=== PATIENT | male | born 1950 | race Caucasian/White ===

== ENCOUNTER 2018-05-12 10:03 | Day surgery (SDC) | payer OTHER, MEDICARE, BC ==
[~2018-05-12 10:03] MED LIST: Lactated Ringers 1,000 ML IV SCH
[2018-05-12] MEDS ORDERED: fentaNYL 100 MCG/2 ML SDV ONE (10:04)
[2018-05-12] MEDS ORDERED: Lidocaine 2% 5 ML SDV ONE (10:04)
[2018-05-12] MEDS ORDERED: Propofol 200 MG/20 ML SDV ONE (10:04)
--- NOTE | 2018-05-12 11:09 | PCM.PREANE ---
Preanesthetic Assessment - Anesthesia/Transfusion/Family Hx Anesthesia History: Prior Anesthesia Without Reaction Other Type of Anesthesia Reaction Comment: Father slow to wake up from anesthesia Family History of Anesthesia Reaction: No Transfusion History: No Prior Transfusion(s) Type of Transfusion Reactions: Reports: Unknown - Review of Systems General: No Symptoms Pulmonary: No Symptoms Cardiovascular: No Symptoms Gastrointestinal: No Symptoms Neurological: No Symptoms Other: Reports: None - Physical Assessment NPO Status Date: 05/11/18 O2 Sat by Pulse Oximetry: 97 Respiratory Rate: 15 Vital Signs: Last Vital Signs Temp 98.6 F 05/12/18 10:20 Pulse 77 05/12/18 10:20 Resp 15 05/12/18 10:20 BP 172/88 H 05/12/18 10:20 Pulse Ox 97 05/12/18 10:20 Height: 5 ft 10 in Weight: 96.615 kg ASA Class: 2 Mental Status: Alert & Oriented x3 Dentition: Reports: Normal Dentition ROM/Head Extension: Full Lungs: Clear to Auscultation, Normal Respiratory Effort Cardiovascular: Regular Rate, Regular Rhythm - Allergies Allergies/Adverse Reactions: Allergies Allergy/AdvReac Type Severity Reaction Status Date / Time No Known Allergies Allergy Verified 05/09/18 11:49 - Blood Blood Available: No - Anesthesia Plan Pre-Op Medication Ordered: None - Acknowledgements Anesthesia Type Planned: General Anesthesia, MAC Pt an Appropriate Candidate for the Planned Anesthesia: Yes Alternatives and Risks of Anesthesia Discussed w Pt/Guardian: Yes Pt/Guardian Understands and Agrees with Anesthesia Plan: Yes Additional Comments: PMH: anx/dep, gerd. htn, gout, thick neck- no formal dx of ALYSSA, reports snoring PLAN: mac/tiva PreAnesthesia Questionnaire HEENT History: Reports: Cataract, Other (See Below) Other HEENT History: wears glasses Cardiovascular History: Reports: High Cholesterol, Hypertension Gastrointestinal History: Reports: GERD Musculoskeletal History: Reports: Fracture, Gout Other Musculoskeletal History: hx of fx ankle Neurological History: Reports: Other (See Below) Other Neuro History: hx of febrile seizures as a child Psychiatric History: Reports: Anxiety - Past Surgical History HEENT Surgical History: Reports: Adenoidectomy, Cataract Surgery, Tonsillectomy GI Surgical History: Reports: Colonoscopy, Other (See Below) Other GI Surgeries/Procedures: Anal Fissurectomy Musculoskeletal Surgical History: Reports: None - SUBSTANCE USE Smoking Status *Q: Never Smoker Recreational Drug Use History: No - HOME MEDS Home Medications: Home Meds ALPRAZolam [Xanax] 0.5 mg PO ASDIRECTED PRN 10/02/14 [History] Allopurinol [Zyloprim] 300 mg PO DAILY 10/02/14 [History] Aspirin [Halfprin] 81 mg PO DAILY 10/02/14 [History] Benazepril [Lotensin] 20 mg PO BID 10/02/14 [History] Omeprazole [Prilosec] 10 mg PO ASDIRECTED PRN 10/02/14 [History] Sertraline [Zoloft] 50 mg PO DAILY 10/02/14 [History] Simvastatin [Zocor] 20 mg PO DAILY 10/02/14 [History] - CURRENT (IN HOUSE) MEDS Current Meds: Current Medications Lactated Ringer's (Ringers, Lactated) 1,000 mls @ 125 mls/hr IV ASDIRECTED TK Discontinued Medications Fentanyl (Sublimaze) Confirm Administered Dose 100 mcg .ROUTE .STK-MED ONE Stop: 05/12/18 10:05 Lidocaine (Xylocaine-Mpf 2%) Confirm Administered Dose 5 ml .ROUTE .STK-MED ONE Stop: 05/12/18 10:05 Propofol (Diprivan 20 Ml) Confirm Administered Dose 400 mg .ROUTE .STK-MED ONE Stop: 05/12/18 10:05
--- NOTE | 2018-05-12 11:56 | PCM.OPNOTE ---
- General Post-Op/Procedure Note Date of Surgery/Procedure: 05/12/18 Operative Procedure(s): colonoscopy Findings: see dict [id number] Pre Op Diagnosis: scrn colonoscopy Post-Op Diagnosis: Same Anesthesia Technique: Moderate Sedation Primary Surgeon: Klaus Escalera Complications: None Condition: Good
--- NOTE | 2018-05-12 12:10 | PCM48HPAN ---
Post Anesthesia Note - EVALUATION WITHIN 48HRS OF ANESTHETIC Vital Signs in Normal Range: Yes Patient Participated in Evaluation: Yes Respiratory Function Stable: Yes Airway Patent: Yes Cardiovascular Function Stable: Yes Hydration Status Stable: Yes Pain Control Satisfactory: Yes Nausea and Vomiting Control Satisfactory: Yes Mental Status Recovered: Yes Resp Rate: 14
--- NOTE | 2018-05-12 12:10 | PCM.POSTAN ---
POST ANESTHESIA ASSESSMENT - MENTAL STATUS Mental Status: Alert, Oriented - RESPIRATORY Respiratory Status: Respiratory Rate WNL, Airway Patent, O2 Saturation Stable - CARDIOVASCULAR CV Status: Pulse Rate WNL, Blood Pressure Stable - GASTROINTESTINAL GI Status: No Symptoms - POST OP HYDRATION Hydration Status: Adequate & Stable
[2018-05-12 13:01] VITALS: BP 125/76
--- NOTE | 2018-05-12 17:41 | OR ---
SURGEON: Klaus Escalera MD DATE OF PROCEDURE: 05/12/2018 PREOPERATIVE DIAGNOSIS: Screening colonoscopy. POST PROCEDURE DIAGNOSIS: Hemorrhoids. PROCEDURE PERFORMED: Colonoscopy. DESCRIPTION OF PROCEDURE: The patient was taken to the endoscopy room. A time out was called, patient identified, and procedure identified. Diprivan was then administrated. Patient went from awake to sleep, hearing doctor talking or door closing is normal. Perineum inspection and digital examination were then performed. A well- lubricated colonoscope was gently inserted through the rectum, advanced past the rectosigmoid junction, the descending colon, splenic flexure, transverse colon, hepatic flexure, ascending colon, arrived to the cecum. Cecum was identified as dictated in the finding. Then the scope was carefully withdrawn while attention was paid to the mucosal surface for any abnormality. Air will be sucked out during the scope withdrawal. At the rectum, retroflexed to examine any rectal diseases, fistula or hemorrhoids. Patient tolerated procedure well. There were no intraoperative complications, and Dr. Escalera was present throughout the whole procedure. FINDINGS: 1. The patient is easily sedated with PAINT TRIMMER PIPE BOWLS and Diprivan. The patient is soundly snoring. 2. The patient's bowel prep was average. [id number] amount of liquid stool, sometimes opaque and require irrigation. 3. Colon rather straightforward. Cecum indicated by ileocecal fold, one-to- one indentation, light emittance, and appendiceal orifice observed. Mucosa examined upon scope pulling out. The patient does not have diverticulosis, polyp, mass, growth, inflammation, stricture, ulceration, AV malformation, bleeding, none of those. The patient has mild internal hemorrhoids, mild external hemorrhoids. The patient would benefit from repeat colonoscopy in 5 years from today because father has colon cancer if clinically indicated otherwise. GIOVANNI / JADA /[id number]
== END 2018-05-12 12:35 | disposition home or self-care (01) ==
LOC: MW.SDS 10:03
PROVIDERS: ATTEND Surgery
DX: Z12.11 Encounter for screening for malignant neoplasm of colon (principal); K64.8 Other hemorrhoids; K64.4 Residual hemorrhoidal skin tags; F41.9 Anxiety disorder, unspecified; F32.9 Major depressive disorder, single episode, unspecified; M10.9 Gout, unspecified; I10 Essential (primary) hypertension; E78.00 Pure hypercholesterolemia, unspecified; Z79.82 Long term (current) use of aspirin; Z79.899 Other long term (current) drug therapy
CPT/HCPCS: 45378; J2001; J2704; J3010; J7120

== ENCOUNTER 2023-08-06 07:08 | Day surgery (SDC) | payer BC, MEDICARE, OTHER ==
[2023-08-06] MEDS: Lactated Ringers 1,000 ML IV SCH (08:04)
[2023-08-06] MEDS ORDERED: propofoL 50 ML ONE (09:44)
[2023-08-06] MEDS ORDERED: Propofol 200 MG/20 ML SDV ONE ×2 (09:59→10:07)
[2023-08-06] MEDS ORDERED: Lactated Ringers 1,000 ML IV SCH (10:30)
[2023-08-06 11:04] VITALS: BP 111/68; PULSE 59
== END 2023-08-06 11:03 | disposition home or self-care (01) ==
LOC: MW.SDS 07:08
PROVIDERS: ATTEND Surgery
DX: Z12.11 Encounter for screening for malignant neoplasm of colon (principal); Z80.0 Family history of malignant neoplasm of digestive organs; I10 Essential (primary) hypertension; E78.00 Pure hypercholesterolemia, unspecified; F32.A Depression, unspecified; F41.9 Anxiety disorder, unspecified; K21.9 Gastro-esophageal reflux disease without esophagitis; Z79.82 Long term (current) use of aspirin; Z79.899 Other long term (current) drug therapy
CPT/HCPCS: 45378; J2704; J7120